=== PATIENT | male | born 1975 | race American Indian/Alaskan Native ===

== ENCOUNTER 2019-03-03 12:50 | Emergency (ER) | payer BC ==
--- NOTE | 2019-03-03 13:05 | Event Note ---
ED Screening Note ED Screening Note: pt presents for left sided CP that began two weeks ago describes as a pressure states it hurts to take a deep breath no SOB, no difficulty in breathing no LE edema no N/V no diaphoresis PMHx none no daily meds no allergies to meds +occ cigar +occ drinker no drug use This initial assessment/diagnostic orders/clinical plan/treatment(s) is/are subject to change based on patients health status, clinical progression and re- assessment by fellow clinical providers in the ED. Further treatment and workup at subsequent clinical providers discretion. Patient/guardian urged not to elope from the ED as their condition may be serious if not clinically assessed and managed. Initial orders include: CP protocol
[2019-03-03 13:07] VITALS: BP 124/81
[2019-03-03 13:35] LABS: Basophils # (Auto) 0.1 K/mm3 (0.0-0.1); Basophils % (Auto) 1.2 % (0.0-1.8); Eosinophils # (Auto) 0.1 K/mm3 (0.0-0.4); Eosinophils % (Auto) 2.1 % (0.0-4.3); Hematocrit 45.4 % (35.5-45.6); Hemoglobin 15.9 gm/dl (11.8-15.2); Mean Corpuscular HGB Conc 35 % (32-34); Mean Corpuscular Volume 94 fl (84-94); Monocytes # (Auto) 0.6 K/mm3 (0.0-0.8); Monocytes % (Auto) 12.3 % (0.0-7.3); Platelet Count 209 K/mm3 (140-440); Red Blood Count 4.84 M/mm3 (3.65-5.03); Red Cell Distribution Width 12.7 % (13.2-15.2)
[2019-03-03 13:42] LABS: INR 0.99 (0.87-1.13)
[2019-03-03 13:44] LABS: Partial Thromboplastin Time 23.5 Sec. (24.2-36.6)
[2019-03-03 13:51] LABS: BUN/Creatinine Ratio 17; Blood Urea Nitrogen 15 mg/dL (9-20); Calcium 9.3 mg/dL (8.4-10.2); Hemolysis Index 13
--- NOTE | 2019-03-03 13:55 | XRay Report ---
ROUTINE CHEST, TWO VIEWS: HISTORY: The. The trachea, heart, mediastinal contour, lung wild and bony thorax are unremarkable. IMPRESSION: Unremarkable chest x-ray.
--- NOTE | 2019-03-03 15:01 | Emergency Department Report ---
ED Chest Pain HPI - General Chief Complaint: Chest Pain Stated Complaint: CHEST PAIN/ABNORMAL EKG Time Seen by Provider: 03/03/19 13:03 Source: patient Mode of arrival: Ambulatory Limitations: No Limitations - History of Present Illness Initial Comments: 43-year-old -[place] male presents to the emergency department, sent in by his primary care physician at [facility], for evaluation of his recent chest pain and an EKG that was performed in the office. The patient says that he's been having some intermittent twinges of chest pain, that mostly occur during deep inspiration, that has been going on over the past 2 weeks. The patient went in to see the primary care physician today and had an EKG that prompted the PCP to send him in to the emergency department for further evaluation. The patient has no past medical history. He denies any tobacco or illicit drug use. No recent travel or sick contacts at home. Patient also de nies any family history of early cardiac disease or events. The patient has occasionally tried some Tylenol for his symptoms without much relief. - Related Data Allergies Allergy/AdvReac Type Severity Reaction Status Date / Time No Known Allergies Allergy Unverified 03/03/19 12:53 Heart Score - HEART Score History: Slightly suspicious EKG: Non-specific Age: < 45 Risk factors: No known risk factors Troponin: < normal limit HEART Score: 1 - Critical Actions Critical Actions: 0-3 pts:0.9-1.7%risk of adverse cardiac event.Candidate for discharge ED Review of Systems ROS: Stated complaint: CHEST PAIN/ABNORMAL EKG Other details as noted in HPI Constitutional: denies: chills, fever Eyes: denies: eye pain, vision change ENT: denies: ear pain, throat pain Respiratory: denies: cough, shortness of breath Cardiovascular: chest pain. denies: edema Gastrointestinal: denies: abdominal pain, vomiting Genitourinary: denies: dysuria, frequency Musculoskeletal: denies: back pain, arthralgia Skin: denies: rash, lesions Neurological: denies: headache, weakness ED Past Medical Hx - Past Medical History Previous Medical History?: No - Surgical History Past Surgical History?: No - Social History Smoking Status: Current Every Day Smoker Substance Use Type: Alcohol ED Physical Exam - General Limitations: No Limitations - Other Other exam information: GENERAL: The patient is well-developed well-nourished. HENT: Normocephalic. Atraumatic. Patient has moist mucous membranes. EYES: Extraocular motions are intact. NECK: Supple. Trachea is midline. CHEST/LUNGS: Clear to auscultation. There is no respiratory distress noted. HEART/CARDIOVASCULAR: Regular. There is no tachycardia. There is no murmur. ABDOMEN: Abdomen is soft, nontender. Patient has normal bowel sounds. There is no abdominal distention. SKIN: Skin is warm and dry. NEURO: The patient is awake, alert, and oriented. The patient is cooperative. The patient has no focal neurologic deficits. The patient has normal speech. MUSCULOSKELETAL: There is no tenderness or deformity. There is no limitation range of motion. There is no evidence of acute injury. ED Course Vital Signs 03/03/19 13:04 Temperature 98 F Pulse Rate 62 Respiratory 16 Rate Blood Pressure 124/81 [Left] O2 Sat by Pulse 99 Oximetry - Consultations Consultation #1: 03/03/19 16:45 I sent the EKGs to be reviewed by the street flusher driver on-call, Dr. Osullivan, says that they do not appear consistent with ST elevation WI but they are abnormal in appearance and he recommends an observational admission for serial troponins and further evaluation. LEESA score - Leesa Score Age > 65: (0) No Aspirin use within the Past 7 Days: (0) No 3 or more CAD Risk Factors: (0) No 2 or more Angina events in past 24 hrs: (1) Yes Known CAD with more than 50% Stenosis: (0) No Elevated Cardiac Markers: (0) No ST Deviation Greater than 0.5mm: (1) Yes LEESA Score: 2 ED Medical Decision Making - Lab Data Result diagrams: 03/03/19 13:09 03/03/19 13:09 - EKG Data -: EKG Interpreted by Me EKG shows normal: sinus rhythm, axis, intervals, QRS complexes, ST-T waves (early repolarization) Rate: normal - EKG Data When compared to previous EKG there are: previous EKG unavailable Interpretation: other (early repolarization) - Radiology Data Radiology results: image reviewed interpreted by me: Chest x-ray does not show any acute process. There are no pleural effusions, obvious pneumonia and there is no pneumothorax. - Medical Decision Making Presents to the emergency department after having some intermittent chest pains over the past 2 weeks and then having an abnormal-appearing EKG at the primary care physician office today. The EKG shows some nonspecific ST elevation but does not appear consistent with a STEMI. The patient's labs have been unremarkable including negative troponins 2 and a negative d-dimer. We repeated his EKG again at it once again has some nonspecific ST elevation. The EKG was reviewed by the street flusher driver disaster or damage control specialist, who recommended the patient be admitted as an observational stay once again does not feel it is consistent with a STEMI. I spoke with the patient regarding the lab and imaging results, the abnormal-appearing EKG, and the recommendation for admission the patient is refusing admission at this time. We had a long conversation about the risks of leaving including the potential for dysrhythmia, heart attack, increased chest pain, syncope, debility or even sudden cardiac . The patient is awake, alert, oriented, and despite all the risks and information given to him, he has signed out AGAINST MEDICAL ADVICE. He was given a referral for cardiology and understands that he can return to the emergency department immediately if he changes his mind about admission, with any worsening of his symptoms, all with any acute distress. - Differential Diagnosis dysrhythmia, WI, costochondritis Critical Care Time: No Critical care attestation.: If time is entered above; I have spent that time in minutes in the direct care of this critically ill patient, excluding procedure time. ED Disposition Clinical Impression: Atypical chest pain, Abnormal EKG Disposition: - LEFT AGAINST MED ADVICE Is pt being admited?: No Condition: Fair Instructions: Chest Pain (ED) Additional Instructions: Please return to the emergency department with any return of your chest pain or if you change your mind about admission and further evaluation of your abnormal EKG appearance. Referrals: NANCY OSULLIVAN MD [Staff Physician] - [facility] Forms: AMA Form Time of Disposition: 18:41
== END 2019-03-03 17:08 | disposition left against medical advice (07) ==
LOC: ED 12:50
DX: R07.89 Other chest pain (principal); R94.31 Abnormal electrocardiogram [ECG] [EKG]; F17.200 Nicotine dependence, unspecified, uncomplicated
CPT/HCPCS: 36415; 71046; 80048; 84484; 85025; 85379; 85610; 85730; 93005; 93010